=== PATIENT | male | born 1975 | race Caucasian/White ===

== ENCOUNTER 2016-06-21 12:13 | Emergency (ER) | payer BC ==
[~2016-06-21] VITALS: Ht 172.7 cm; Wt 110.7 kg
[2016-06-21 12:26] VITALS: BP 136/78
[2016-06-21 13:48] LABS: BLOOD UREA NITROGEN 13 mg/dL (7-18)
[2016-06-21] MEDS ORDERED: CEFTRIAXONE 1,000 MG IM ONE (14:00)
[2016-06-21] MEDS ORDERED: LIDOCAINE 1%, 20ML ONE (14:10)
[2016-06-21] MEDS ORDERED: CEFTRIAXONE 1,000 MG ONE (14:10)
[2016-06-23 07:07] LABS: LYME DISEASE IGG/IGM TOTAL AB <0.91 ISR (0.00-0.90); LYME DISEASE IGM <0.80 index (0.00-0.79)
== END 2016-06-21 14:40 | disposition home or self-care (01) ==
LOC: ED 14:34
DX: M79.1 Myalgia (principal)
CPT/HCPCS: 36415; 80048; 85025; 86618; 96372; 99284; J0696